=== PATIENT | male | born 1985 | race Caucasian/White ===

== ENCOUNTER 2020-02-13 19:47 | Inpatient (IN) ==
[2020-02-13] MEDS ORDERED: KETOROLAC TROMETHAMINE 15 MG/ML VIAL IV ONE (20:04)
[2020-02-13] MEDS ORDERED: ONDANSETRON INJ 2 MG/ML 2 ML VIAL IV STA (20:04)
[2020-02-13] MEDS ORDERED: HYDROmorphone INJ 1 MG/ML SYRINGE IV STA ×2 (20:04→21:12)
[2020-02-13] MEDS ORDERED: SODIUM CHLORIDE 0.9% 1000ML 1,000 ML IV ONE (20:04)
[2020-02-13 20:29] LABS: Appearance Urine Cloudy (Clear); Bacteria Urine Automated Negative (Negative); Basophils # (auto) 0.02 K/uL (0-0.2); Basophils % (auto) 0.3 %; Bilirubin Urine Negative (Negative); Blood Urine 3+ (Negative); Color Urine Yellow; Eosinophils # (auto) 0.19 K/uL (0-0.5); Eosinophils % (auto) 3.2 %; Epithelial Cell Urine Auto 0-5 /lpf (0-5); Glucose Urine UA Negative (Negative); Hematocrit (blood only) 45.8 % (42-52); Hemoglobin 15.7 g/dL (14.0-18.0); Immature Granulocytes # (auto) 0.01 K/uL (0.00-0.02); Immature Granulocytes % (auto) 0.2 %; Ketones Urine Negative (Negative); Leukocyte Esterase Urine Negative (Negative); Lymphocytes # (auto) 2.42 K/uL (1.2-3.4); Lymphocytes % (auto) 40.5 %; Mean Corpuscular Hemoglobin 30.7 pg (25-34); Mean Corpuscular Hgb Conc 34.3 g/dL (32-36); Mean Corpuscular Volume 89.6 fL (80-100); Mean Platelet Volume 10.2 fL (7.4-10.4); Monocytes % (auto) 8.4 %; Neutrophils # (auto) 2.84 K/uL (1.4-6.5); Neutrophils % (auto) 47.4 %; Nitrite Urine Negative (Negative); Platelet Count 240 K/uL (130-400); Protein Urine Negative (Negative); RBC Urine Automated >30 /hpf (0-4); RDW Coefficient of Variation 13.2 % (11.5-14.5); RDW Standard Deviation 43.3 fL (36.4-46.3); Red Blood Count 5.11 M/uL (4.7-6.1); Specific Gravity Urine 1.023 (1.000-1.030); Urobilinogen Urine Negative (Negative); White Blood Count 5.98 K/uL (4.8-10.8); pH Urine 5.5 (4.5-7.5)
[2020-02-13 20:51] LABS: Albumin Level 4.1 gm/dl (3.4-5.0); BUN Creatinine Ratio 11.9 (10-20); Calcium 8.9 mg/dl (8.5-10.1); Est GFR (African American) 77.4; Est GFR (Non-African American) 66.8; Potassium 3.5 mmol/L (3.5-5.1)
--- NOTE | 2020-02-13 20:52 | CT Scan Report ---
ABDOMEN AND PELVIS CT WITHOUT CONTRAST CT DOSE: 340.84 mGy.cm HISTORY: Left flank pain TECHNIQUE: Multiaxial CT images of the abdomen and pelvis were performed without contrast. A dose lo wering technique was utilized adhering to the principles of ALARA. COMPARISON STUDY: Abdomen and pelvis CT 02/05/2012. FINDINGS: Best seen on image 390 is a 4 mm obstructing stone at the left ureterovesical junction. Thi s results in mild left hydronephrosis and mild left perinephric fat stranding. No renal calculi ident ified. The bladder is not well-distended. Suboptimal evaluation for bowel pathology due to the lack o f intravenous and oral contrast. However, there is no definite bowel wall thickening or obstruction. Normal appendix. No retroperitoneal lymphadenopathy. Normal caliber abdominal aorta. The unenhanced l iver, spleen, gallbladder, pancreas, and adrenal glands are unremarkable. No fractures within the vis ualized osseous structures. The lung bases are clear. No pneumoperitoneum. No pneumatosis. IMPRESSION: A 4 mm obstructing stone at the left ureterovesical junction resulting in mild left hydronephrosis. ACT 112: Negative or not required by law. Electronically signed by: David Bobo M.D. 02/13/2020 8:51 PM
[2020-02-13 20:55] LABS: Albumin Globulin Ratio 1.1 (0.9-2); Bilirubin,Total 0.5 mg/dl (0.2-1); Globulin 3.7 gm/dl (2.5-4.0); Total Protein 7.8 gm/dl (6.4-8.2)
--- NOTE | 2020-02-13 21:12 | Emergency Department Note ---
History of Present Illness General Chief complaint: Flank Pain Stated complaint: kidney stones, flank pain Time Seen by Provider: 02/13/20 19:55 History of Present Illness Maximum Pain Intensity: 5 This patient is a pleasant 34-year-old male that presents ambulatory to the emergency department for evaluation of a sharp, stabbing sensation in his left flank that started approximately 45 minutes ago. The pain is worse with any movement. He denies any urinary symptoms. No hematuria. He denies any vomiting. No changes in bowel movements. He has not taken anything for pain. He denies any history of kidney stones. Home Medications Home Medications Medication Instructions Recorded Confirmed Type No Known Home Medications 02/13/20 02/13/20 History ondansetron HCl [Zofran] 4 mg PO Q6H PRN #20 tab 02/13/20 Rx oxycodone 5 mg PO Q6H PRN #12 tab 02/13/20 Rx tamsulosin [Flomax] 0.4 mg PO HS #7 cap 02/13/20 Rx Allergies Allergy/AdvReac Type Severity Reaction Status Date / Time No Known Allergies Allergy Verified 02/13/20 21:21 Past Med/Surg History Medical History No pertinent past medical history Social History Smoking Status: Former smoker Do You Dip or Chew Tobacco: Yes (Occasionally); Hx Alcohol Use: No Hx Substance Use: No 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 Internal Affairs Required: No Current Living Situation: Spouse Other Information That Helps Us Care for You: No Feels Safe at Home: Yes Safety Concerns: Feels Safe At This Time Assistive Devices: None Review of Systems A total of 10 systems reviewed and were otherwise negative Physical Exam Vital Signs Vital Signs - 24 hr 02/13/20 19:49 02/13/20 20:28 02/13/20 20:58 Temperature 36.6 C Temperature Source Oral Pulse Rate 100 H Pulse Rate [Right Finger] 90 75 Pulse Rhythm Regular Pulse Rhythm [Right Finger] Regular Regular Pulse Strength Normal Pulse Strength [Right Finger] Normal Normal Respiratory Rate 20 16 16 Respiratory Effort / Characteristics Non-Labored Spontaneous Non-Labored Respiratory Depth Normal Normal Normal Respiratory Pattern Regular Regular Blood Pressure 163/100 H Blood Pressure [Left Arm] 147/100 H 131/98 Blood Pressure Mean 121 Blood Pressure Mean [Left Arm] 115 109 Blood Pressure Position Sitting Blood Pressure Position [Left Arm] Lying Lying Pulse Oximetry 97 100 99 Oxygen Delivery Method Room Air Room Air Room Air Sepsis Recent Fever Within 48 Hours No Sepsis New/Unexplained Change in Mental Status N/A Sepsis Action Taken by Nursing No Action Required Constitutional WD/WN, vitals as above Eyes EOM intact bilaterally ENMT external ear and nose normal, oropharynx normal Neck trachea midline Respiratory normal respiratory effort, lungs clear to auscultation Cardiovascular RRR, no murmur, no edema Gastrointestinal (Abdomen) Mild tenderness to palpation in the left lower quadrant. Bowel sounds present in all 4 quadrants. No guarding or rebound tenderness. Musculoskeletal no cyanosis or clubbing, extremities motor strength 5/5 Skin no rashes, warm and dry Neurologic Alert and oriented x3. No focal motor deficits. Psychiatric Acting appropriately Course Course Patient was seen and examined Vital signs including blood pressure were reviewed medications list was verified with patient Labs were obtained, and a saline lock was established Pain medications were ordered. Imaging was ordered and reviewed. He was updated at the bedside. He unfortunately is still in pain. The inpatient service was consulted for pain management. Patient is in agreement [facility] Medications Discontinued Medications Fentanyl Citrate (Fentanyl Citrate 100 Mcg/2 Ml Vial) 75 mcg IV NOW ONE Stop: 02/13/20 22:06 Last Admin: 02/13/20 22:29 Dose: 75 mcg Documented by: [id number] Hydromorphone HCl (Hydromorphone Inj 1 Mg/Ml Syringe) 1 mg IV NOW STA Stop: 02/13/20 20:05 Last Admin: 02/13/20 20:18 Dose: 1 mg Documented by: [id number] Hydromorphone HCl (Hydromorphone Inj 1 Mg/Ml Syringe) 1 mg IV NOW STA Stop: 02/13/20 21:13 Last Admin: 02/13/20 21:29 Dose: 1 mg Documented by: [id number] Hydromorphone HCl (Hydromorphone Inj 0.5 Mg/0.5 Ml Syr) 0.5 mg IV Q3H PRN PRN Reason: Pain Stop: 02/27/20 23:33 Last Admin: 02/14/20 01:53 Dose: 0.5 mg Documented by: [id number] Hydromorphone HCl (Hydromorphone Inj 0.5 Mg/0.5 Ml Syr) 0.5 mg IV NOW STA Stop: 02/14/20 04:45 Last Admin: 02/14/20 05:01 Dose: Not Given Documented by: [id number] Sodium Chloride (Nss 1000ml) 1,000 mls @ 999 mls/hr IV .Q1H1M ONE Stop: 02/13/20 21:04 Last Infusion: 02/13/20 21:00 Dose: 0 mls/hr Documented by: [id number] Admin: 02/13/20 20:22 Dose: 999 mls/hr Documented by: [id number] Sodium Chloride (Nss 1000ml) 1,000 mls @ 125 mls/hr IV .Q8H OSIEL Stop: 03/14/20 23:33 Last Infusion: 02/14/20 14:45 Dose: 125 mls/hr Documented by: [id number] Admin: 02/14/20 08:23 Dose: 125 mls/hr Documented by: [id number] Infusion: 02/14/20 08:14 Dose: 125 mls/hr Documented by: [id number] Infusion: 02/14/20 06:20 Dose: 125 mls/hr Documented by: [id number] Admin: 02/14/20 00:14 Dose: 125 mls/hr Documented by: [id number] Ketorolac Tromethamine (Ketorolac Tromethamine 15 Mg/Ml Vial) 15 mg IV NOW ONE Stop: 02/13/20 20:05 Last Admin: 02/13/20 20:18 Dose: 15 mg Documented by: [id number] Ketorolac Tromethamine (Ketorolac 30 Mg/Ml Vial) 30 mg IV Q6H PRN PRN Reason: Pain Stop: 02/18/20 23:33 Last Admin: 02/14/20 15:36 Dose: 30 mg Documented by: [id number] Admin: 02/14/20 08:28 Dose: 30 mg Documented by: [id number] Admin: 02/14/20 02:25 Dose: 30 mg Documented by: [id number] Ondansetron HCl (Ondansetron Inj 2 Mg/Ml 2 Ml Vial) 4 mg IV NOW STA Stop: 02/13/20 20:05 Last Admin: 02/13/20 20:17 Dose: 4 mg Documented by: [id number] Ondansetron HCl (Ondansetron Home Pack 4mg Od Tab) 1 homepack PO NOW ONE Stop: 02/13/20 21:13 Last Admin: 02/13/20 22:39 Dose: Not Given Documented by: [id number] Oxycodone HCl (Oxycodone Ir Home Pack) 1 homepack PO UD ONE Stop: 02/13/20 21:13 Last Admin: 02/13/20 22:39 Dose: Not Given Documented by: [id number] Oxycodone HCl (Oxycodone Hcl Ir 5 Mg Tab (Immediate Release)) 5 mg PO Q4H PRN PRN Reason: Pain Stop: 02/28/20 04:53 Last Admin: 02/14/20 13:33 Dose: 5 mg Documented by: [id number] Oxycodone HCl (Oxycodone Hcl Ir 5 Mg Tab (Immediate Release)) Confirm Administered Dose 5 mg .ROUTE .STK-MED ONE Stop: 02/14/20 04:57 Last Admin: 02/14/20 04:57 Dose: 5 mg Documented by: [id number] Tamsulosin HCl (Tamsulosin Hcl 0.4 Mg Cap) 0.4 mg PO NOW ONE Stop: 02/13/20 23:35 Last Admin: 02/14/20 00:14 Dose: 0.4 mg Documented by: [id number] Medical Decision Making Medical Records Attestation: I reviewed the patient's medical records. Home Medications Current Medication List: was personally reviewed by me Laboratory Data Attestation: I reviewed the patient's lab results. Result diagrams: 02/14/20 05:18 02/14/20 05:18 Lab Results 02/13/20 02/13/20 02/13/20 Range/Units 20:12 20:12 20:12 WBC 5.98 (4.8-10.8) K/uL RBC 5.11 (4.7-6.1) M/uL Hgb 15.7 (14.0-18.0) g/dL Hct 45.8 (42-52) % MCV 89.6 (80-100) fL MCH 30.7 (25-34) pg MCHC 34.3 (32-36) g/dL RDW Std Deviation 43.3 (36.4-46.3) fL RDW Coeff of Rand 13.2 (11.5-14.5) % Plt Count 240 (130-400) K/uL MPV 10.2 (7.4-10.4) fL Immature Gran % (Auto) 0.2 % Neut % (Auto) 47.4 % Lymph % (Auto) 40.5 % Williamson % (Auto) 8.4 % Eos % (Auto) 3.2 % Baso % (Auto) 0.3 % Neut # (Auto) 2.84 (1.4-6.5) K/uL Lymph # (Auto) 2.42 (1.2-3.4) K/uL Williamson # (Auto) 0.50 (0.11-0.59) K/uL Eos # (Auto) 0.19 (0-0.5) K/uL Baso # (Auto) 0.02 (0-0.2) K/uL Immature Gran # (Auto) 0.01 (0.00-0.02) K/uL Sodium 138 (136-145) mmol/L Potassium 3.5 (3.5-5.1) mmol/L Chloride 107 (98-107) mmol/L Carbon Dioxide 29 (21-32) mmol/L Anion Gap 2.0 L (3-11) BUN 16 (7-18) mg/dl Creatinine 1.37 (0.6-1.4) mg/dl Est Cr Clr Drug Dosing 71.0 ml/min Est GFR ( Amer) 77.4 Est GFR (Non-Af Amer) 66.8 BUN/Creatinine Ratio 11.9 (10-20) Glucose 97 (70-99) mg/dl Calcium 8.9 (8.5-10.1) mg/dl Total Bilirubin 0.5 (0.2-1) mg/dl AST 12 L (15-37) U/L ALT 20 (12-78) U/L Alkaline Phosphatase 56 (45-117) U/L Total Protein 7.8 (6.4-8.2) gm/dl Albumin 4.1 (3.4-5.0) gm/dl Globulin 3.7 (2.5-4.0) gm/dl Albumin/Globulin Ratio 1.1 (0.9-2) Urine Color Yellow Urine Appearance Cloudy A (Clear) Urine pH 5.5 (4.5-7.5) Ur Specific [place] 1.023 (1.000-1.030) Urine Protein Negative (Negative) Urine Glucose (UA) Negative (Negative) Urine Ketones Negative (Negative) Urine Blood 3+ H (Negative) Urine Nitrite Negative (Negative) Urine Bilirubin Negative (Negative) Urine Urobilinogen Negative (Negative) Ur Leukocyte Esterase Negative (Negative) Urine WBC (Auto) 1-5 (0-5) /hpf Urine RBC (Auto) >30 H (0-4) /hpf U Hyaline Cast (Auto) 1-5 (0-5) /lpf U Epithel Cells (Auto) 0-5 (0-5) /lpf Urine Bacteria (Auto) Negative (Negative) Imaging Data Attestation: I personally reviewed and interpreted this imaging study as follows: Radiologist's Impression: CT abdomen and pelvis without IV or oral contrast IMPRESSION: A 4 mm obstructing stone at the left ureterovesical junction resulting in mild left hydronephrosis. ACT 112: Negative or not required by law. Electronically signed by: David Bobo M.D. 02/13/2020 8:51 PM Dictated: 02/13/202046 Transcribed: 02/13/202046 MDM Narrative Differential diagnosis: Ureteral stone, kidney stone, pyelonephritis, diverticulitis, bowel obstruction, bowel perforation, testicular torsion, among others were considered This patient is a 34-year-old male who presents emergency department complaining of a sudden onset of left flank pain. On exam, his vital signs were stable. He was nontoxic in appearance. He did appear to be uncomfortable. He was tender in the left lower abdomen. Labs reveal no leukocytosis. Renal function is intact. Electrolytes also within normal limits. I had a high suspicion of ureteral stones; therefore, we proceeded with a CT of the abdomen and pelvis. This is consistent with a 4 mm stone at the UVJ with mild hydronephrosis. This likely explains his pain. His urine does not appear to be infected. His pain was uncontrolled. He will be evaluated by the hospitalist for possible inpatient management. Impression & Plan Calculus, ureteral Discharge Plan Visit Data Chief Complaint: Flank Pain Stated Complaint: kidney stones, flank pain ED Provider: Heidi Lin ED Midlevel Provider: Lynette Latif Discharge Problem: Calculus, ureteral Patient Disposition: Admitted As Inpatient Condition: Good Discharge Instructions Interventions: ED Discharge Assessment Last Done: 02/13/20 23:20
[2020-02-13] MEDS: oxyCODONE IR HOME PACK PO ONE ×2 (21:29→22:39)
[2020-02-13] MEDS: ONDANSETRON HOME PACK 4MG OD TAB PO ONE ×2 (21:29→22:39)
[2020-02-13] MEDS ORDERED: fentaNYL citrate 100 MCG/2 ML VIAL IV ONE (22:05)
[2020-02-13] MEDS ORDERED: POLYETHYLENE (MIRALAX) 17 GM PACK PO PRN (23:34)
[2020-02-13] MEDS ORDERED: ONDANSETRON INJ 2 MG/ML 2 ML VIAL IV PRN (23:34)
[2020-02-13] MEDS ORDERED: TAMSULOSIN HCL 0.4 MG CAP PO ONE (23:34)
[2020-02-13] MEDS ORDERED: HYDROmorphone INJ 0.5 MG/0.5 ML SYR IV PRN (23:34)
[2020-02-13] MEDS ORDERED: ACETAMINOPHEN 325 MG TAB PO PRN (23:34)
[2020-02-14] MEDS: SODIUM CHLORIDE 0.9% 1000ML 1,000 ML IV SCH ×2 (00:14→08:23)
--- NOTE | 2020-02-14 00:31 | History and Physical Report ---
DATE OF ADMISSION: 02/13/2020 CHIEF COMPLAINT: Left flank pain. HISTORY OF PRESENT ILLNESS: This is a 34-year-old male with past medical history significant for hypertension, not on any medications. The patient on was diagnosed with COVID, still has some distaste, comes today because of severe left flank pain started at 7:00 p.m. tonight, the pain comes and goes. He required significant pain medication in the ER, initially the plan was to send him home and follow as outpatient, but the pain came back, so we are admitting for pain control. The patient currently resting comfortably and hemodynamically stable, seems to be in pain. Denies any other complaints. Denies any headache, no blurred vision, no earache, no runny nose, no sore throat, no cough, no fever, no chills, no chest pain, no shortness of breath, no nausea, no vomiting. No hematuria, no burning micturitions. Normal bowel movements. No swelling in the legs seen. ALLERGIES: No known drug allergies. PAST MEDICAL HISTORY: As mentioned above. PAST SURGICAL HISTORY: Colonoscopy. MEDICATIONS: None. FAMILY HISTORY: Significant for father had diabetes, hypertension. Mother has heart disorder, diabetes. Maternal grandfather had prostate cancer and heart disorder. SOCIAL HISTORY: Single, smokes tobacco. No alcohol use, no drug use. REVIEW OF SYMPTOMS: As per HPI. Rest of review of symptoms negative. PHYSICAL EXAMINATION: GENERAL: The patient is of moderate build, not in acute distress. VITAL SIGNS: Temperature 36.6, pulse 94, respiratory rate 16, blood pressure 168/102, oxygen 99% on room air. HEENT: Pupils equal, round, reactive to light. Oral mucosa moist. NECK: Supple. CARDIOVASCULAR: S1, S2 heard, regular rate and rhythm, no murmur, no gallop. RESPIRATORY SYSTEM: Normal AP diameter. No accessory muscle use. No wheezing, no crackles. ABDOMEN: Soft, bowel sounds present, mild LLQ discomfort. No distention, no CVA tenderness. CENTRAL NERVOUS SYSTEM: Cranial nerves II-XII grossly intact. Nonfocal. EXTREMITIES: No edema, no erythema. LABORATORY DATA: WBC 5.9, hemoglobin 15.7, hematocrit 45.8, platelets 240. Sodium 138, potassium 3.5, chloride 107, bicarbonate 29, BUN 16, creatinine 1.37, serum glucose 97, calcium 8.9, total bilirubin 0.5, AST 12, ALT 20, alkaline phosphatase 56. Urinalysis, +[address] of abdomen and pelvis without contrast showed 4 mm obstructing stone at the left UVJ junction resulting mild left hydronephrosis. ASSESSMENT AND PLAN: This 34-year-old male who presents with left renal colic. 1. Left renal colic with CAT scan showing 4 mm left UVJ junction stone with mild hydronephrosis. UA is negative for infection, afebrile and no leukocytosis. Requiring significant pain medication in the ER. Will admit to the hospital, will give him IV fluids, IV Dilaudid p.r.n., IV Toradol p.r.n. Flomax. Will keep n.p.o. after midnight and consult Urology in the a.m. for further recommendation. 2. History of hypertension, not on any medication, currently elevated, could be situational. We will monitor the blood pressure. 3. Deep venous thrombosis prophylaxis, sequential compression devices. DISPOSITION: Admit to medical floor. Expect discharge home and follow with family doctor. SEPIDEH
[2020-02-14] MEDS: KETOROLAC 30 MG/ML VIAL IV PRN ×3 (02:25→15:36)
[2020-02-14] MEDS ORDERED: HYDROmorphone INJ 0.5 MG/0.5 ML SYR IV STA (04:44)
[2020-02-14] MEDS ORDERED: oxyCODONE HCL IR 5 MG TAB (IMMEDIATE RELEASE) PO PRN (04:54)
[2020-02-14] MEDS ORDERED: oxyCODONE HCL IR 5 MG TAB (IMMEDIATE RELEASE) ONE (04:56)
[2020-02-14 05:51] LABS: Basophils # (auto) 0.02 K/uL (0-0.2); Basophils % (auto) 0.3 %; Eosinophils # (auto) 0.13 K/uL (0-0.5); Eosinophils % (auto) 1.8 %; Hematocrit (blood only) 43.6 % (42-52); Hemoglobin 14.6 g/dL (14.0-18.0); Immature Granulocytes # (auto) 0.01 K/uL (0.00-0.02); Immature Granulocytes % (auto) 0.1 %; Lymphocytes # (auto) 1.62 K/uL (1.2-3.4); Lymphocytes % (auto) 22.6 %; Mean Corpuscular Hemoglobin 30.3 pg (25-34); Mean Corpuscular Hgb Conc 33.5 g/dL (32-36); Mean Corpuscular Volume 90.5 fL (80-100); Mean Platelet Volume 10.4 fL (7.4-10.4); Monocytes # (auto) 0.81 K/uL (0.11-0.59); Monocytes % (auto) 11.3 %; Neutrophils # (auto) 4.57 K/uL (1.4-6.5); Neutrophils % (auto) 63.9 %; Platelet Count 230 K/uL (130-400); RDW Coefficient of Variation 13.4 % (11.5-14.5); Red Blood Count 4.82 M/uL (4.7-6.1); White Blood Count 7.16 K/uL (4.8-10.8)
[2020-02-14 06:07] LABS: BUN Creatinine Ratio 10.4 (10-20); Calcium 8.6 mg/dl (8.5-10.1); Creatinine Clr Calc Pharmacy 83.2 ml/min; Est GFR (African American) 84.9; Est GFR (Non-African American) 73.2; Potassium 3.8 mmol/L (3.5-5.1)
--- NOTE | 2020-02-14 08:18 | Urology Consultation ---
Date of Consultation February 14, 2020 Assessment & Plan (1) Left ureteral calculus: 34yo M admitted for left flank pain secondary to a 4mm left UVJ stone with hydronephrosis -Plan of care reviewed with Dr. Faith -Patient afebrile, white count and creatinine are stable -Discussed options for acute stone management with ureteroscopy, stone extraction, and stent -Discussed outpatient options for conservative measures with max expulsion medical therapy -Discussed possible outpatient ESWL, KUB ordered -Risks/benefits of all procedures discussed -Patient prefers trial of passage -Keep NPO for now -Strain all urine -Will plan to reevaluate later today History of Present Illness Attending Physician: Yenifer Beck MD History of Present Illness 34yo M, with no significant PMHx, presented to the ER last night with c/o left flank pain. A CT abd/pelvis was performed which was notable for a 4 mm obstructing stone at the left ureterovesical junction resulting in mild left hydronephrosis. He was admitted for pain control and IVF. Urology consulted for 4mm left UVJ stone with hydro. He has not followed with Urology in the past No personal or family hx of stones Chart review 02/13: Afebrile WBC 7.16 Cr 1.27 Hgb 14.6 UA- 3+blood, negative for bacteria, negative for nitrites, negative for leuks Imaging- CT abd/pelvis Impression: 1. A 4 mm obstructing stone at the left ureterovesical junction resulting in mild left hydronephrosis. Patient examined at bedside this am. Reports some improvement in L flank pain with medication. Denies fevers or chills. Denies nausea or vomiting. Denies hematuria and dysuria. Denies any urinary frequency/urgency. Has been NPO. Not on anticoagulants. Allergies Allergy/AdvReac Type Severity Reaction Status Date / Time No Known Allergies Allergy Verified 02/13/20 21:21 Home Medications Home Medications Medication Instructions Recorded Confirmed Type No Known Home Medications 02/13/20 02/13/20 History ondansetron HCl [Zofran] 4 mg PO Q6H PRN #20 tab 02/13/20 Rx oxycodone 5 mg PO Q6H PRN #12 tab 02/13/20 Rx tamsulosin [Flomax] 0.4 mg PO HS #7 cap 02/13/20 Rx Patient History Medical History No pertinent past medical history Social History Smoking Status: Former smoker Do You Dip or Chew Tobacco: Yes (Occasionally); Hx Alcohol Use: No Hx Substance Use: No Preferred Language: Slovak Compliance Monitor Required: No Current Living Situation: Spouse Other Information That Helps Us Care for You: No Feels Safe at Home: Yes Safety Concerns: Feels Safe At This Time Assistive Devices: None Review of Systems Review of Systems: All systems reviewed & are unremarkable except as noted in HPI & below Physical Exam Constitutional: well developed and well nourished; no acute distress and not ill appearing Neck: normal visual inspection Respiratory: normal respiratory effort and able to speak in complete sentences Cardiovascular: Extremities: no calf tenderness and no pedal edema Gastrointestinal (Abdomen): Inspection/Auscultation: abdomen normal to inspection Musculoskeletal: Head/Neck/Chest: normocephalic Skin: no rashes, warm and dry Neurologic: moves all extremities and awake; not confused Psychiatric: Orientation: alert, oriented x 3 and cooperative Results & Data ([facility]) Vital Signs (Past 12 Hours) Vital Signs Temp Pulse Pulse Pulse Resp BP BP 02/14/20 07:10 36.6 C 69 18 124/82 02/14/20 06:14 99 H 138/91 02/13/20 23:37 37 C 69 16 155/104 H 02/13/20 23:20 79 18 152/82 H 02/13/20 22:32 95 H 16 168/102 H 02/13/20 20:58 75 16 131/98 02/13/20 20:28 90 16 147/100 H Pulse Ox 02/14/20 07:10 100 02/14/20 06:14 02/13/20 23:37 97 02/13/20 23:20 99 02/13/20 22:32 99 02/13/20 20:58 99 02/13/20 20:28 100 PG Care Time/CCT Total # of Minutes Spent Total Time Spent with Patient: Total time spent is greater than 50% in coordination of care (as documented) at patient's floor/unit and/or counseling patient: Coding Level of Care Code 62571 Inpt Consult Level 4 Diagnoses Left ureteral calculus N20.1
--- NOTE | 2020-02-14 13:36 | XRay Report ---
KUB HISTORY: Follow up study in a patient with the reported left ureteral calculus Left Ureteral Stone COMPARISON: CT abdomen and pelvis 02/13/2020. FINDINGS: The bowel gas pattern is non-obstructive. There is no organomegaly. There is a 4 mm radiod ensity of the left hemipelvis. No nephrolithiasis identified. No pneumoperitoneum or pneumatosis. No fracture. IMPRESSION: 4 mm radiodensity of the left hemipelvis likely represents persistent distal left ureteral calculus. ACT 112: Negative or not required by law. The above report was generated using voice recognition software. It may contain grammatical, syntax o r spelling errors. Electronically signed by: Zana Kenney M.D. 02/14/2020 1:35 PM
--- NOTE | 2020-02-14 16:11 | Hospitalist Progress Note ---
Date of Service February 14, 2020 Assessment & Plan (1) Left ureteral calculus: presented with left flank pain CT abdomen/pelvis shows 4 mm distal ureterovesical stone appreciate input from Urology pt refused to have Ureteric stent placement , wants to have trial of passage of stone spontaneously does not have any fever or chills , no evidence of infection normal kidney function per Urology pt can be discharged home today -appointment scheduled at the clinic in week for ESWL if unable to pass the stone by then scripts for Oxycodone , Flomax and PRN Zofran sent to pharmacy by Urology already pt is discharged home today aware that if pain gets worse , develops fever /chills , intractable Nausea /vomiting , needs to come to ER for evaluation Pt and his verbalized understanding Admission and Anticipated Discharge Date Admission Date: February 13, 2020 Subjective Continues to have left flank pain tolerable with pain meds unable to pass the ureteric stone yet no fever or chills very eager to be discharged home today Review of Systems Review of Systems: All systems reviewed & are unremarkable except as noted in HPI & below Gastrointestinal: left flank pain Physical Exam Constitutional: WD/WN, vitals as above Eyes: PERRL, conjunctivae normal, anicteric sclerae ENMT: external ear and nose normal, oropharynx normal Neck: trachea midline, no thyromegaly Respiratory: normal respiratory effort, lungs clear to auscultation Cardiovascular: RRR, no murmur, no edema Gastrointestinal (Abdomen): Percussion/Palpation: abdomen soft left flank pain Musculoskeletal: no cyanosis or clubbing, extremities motor strength 5/5 Skin: no rashes, warm and dry Neurologic: PERRL, EOMI, accommodation nl, no face palsy, no dysarthria Psychiatric: A+Ox3, euthymic affect Results & Data Results & Data ([facility]) Vital Signs (Past 12 Hours) Vital Signs Temp Pulse Pulse Resp BP Pulse Ox 02/14/20 07:10 36.6 C 69 18 124/82 100 02/14/20 06:14 99 H 138/91
--- NOTE | 2020-02-14 16:12 | Discharge Summary ---
Date of Service February 14, 2020 Admission HPI Per Admitting Provider DICTATED BY: Albert Jackson MD DATE OF ADMISSION: 02/13/2020 CHIEF COMPLAINT: Left flank pain. HISTORY OF PRESENT ILLNESS: This is a 34-year-old male with past medical history significant for hypertension, not on any medications. The patient on was diagnosed with COVID, still has some distaste, comes today because of severe left flank pain started at 7:00 p.m. tonight, the pain comes and goes. He required significant pain medication in the ER, initially the plan was to send him home and follow as outpatient, but the pain came back, so we are admitting for pain control. The patient currently resting comfortably and hemodynamically stable, seems to be in pain. Denies any other complaints. Denies any headache, no blurred vision, no earache, no runny nose, no sore throat, no cough, no fever, no chills, no chest pain, no shortness of breath, no nausea, no vomiting. No hematuria, no burning micturitions. Normal bowel movements. No swelling in the legs seen Principal Diagnosis Kidney Stone Discharge Exam Constitutional WD/WN, vitals as above Eyes PERRL, conjunctivae normal, anicteric sclerae ENMT external ear and nose normal, oropharynx normal Neck trachea midline, no thyromegaly Respiratory normal respiratory effort, lungs clear to auscultation Cardiovascular RRR, no murmur, no edema Gastrointestinal (Abdomen) Percussion/Palpation: abdomen soft Musculoskeletal no cyanosis or clubbing, extremities motor strength 5/5 Skin no rashes, warm and dry Neurologic PERRL, EOMI, accommodation nl, no face palsy, no dysarthria Psychiatric A+Ox3, euthymic affect Discharge Data Allergies Allergy/AdvReac Type Severity Reaction Status Date / Time No Known Allergies Allergy Verified 02/13/20 21:21 Consultations 02/13/20 22:06 ED Decision to Admit Stat 02/14/20 08:00 Consult Urology Routine Ordered Studies 02/13/20 20:04 CT abd pelvis wo con Stat Hospital Course (1) Left ureteral calculus: presented with left flank pain CT abdomen/pelvis shows 4 mm distal ureterovesical stone appreciate input from Urology pt refused to have Ureteric stent placement , wants to have trial of passage of stone spontaneously does not have any fever or chills , no evidence of infection normal kidney function per Urology pt can be discharged home today -appointment scheduled at the clinic in week for ESWL if unable to pass the stone by then scripts for Oxycodone , Flomax and PRN Zofran sent to pharmacy by Urology already pt is discharged home today aware that if pain gets worse , develops fever /chills , intractable Nausea /vomiting , needs to come to ER for evaluation Pt and his verbalized understanding Total Time Total Time Spent Total Time Spent (In Minutes): 35 mins Total Time Includes: Examination of the Patient, Discharge Planning and Medication Reconciliation Discharge Plan Discharge Items Patient Disposition: Home - Self-Care Reason For Visit: LEFT FLANK PAIN Discharge Diagnosis: LEFT URETERIC STONE Condition on Discharge: Good Activity: Resume your previous activity Non-emergency contact: Primary Care Provider Call non-emergency contact if: you have any medication questions, your symptoms worsen, your pain is worsening, you have a fever and your rectal temperature is above 100.4 Follow-up/Referrals: Carl Faith MD [Physician] - (FOLLOW UP WITH UROLOGY SCHEDULED ) Oma Rothman DO [Primary Care Provider] - 02/19/20 2:20 pm Diet: Regular Addtl Attending Provider Instructions: PLEASE FOLLOW UP WITH UROLOGY IN A WEEK , CONTINUE TO STRAIN ALL URINE /IF YOU ARE ABLE TO PASS THE STONE AT HOME , KEEP THE SAMPLE AND BRING IT UROLOGY VISIT KIDNEY STONE CAN BE ANALYZED IN THE LAB TO FIND THE COMPONENT OF THE STONE ( MOST STONES ARE MADE OF CALCIUM ) SOME OF THE CASES FUTURE STONE FORMATION CAN BE PREVENTED BY CHANGING DIET OR MEDICATION UROLOGY WILL BE ABLE TO RECOMMEND YOU AFTER THE LAB RESULT IS AVAILABLE DRINK PLENTY OF FLUID YOU CAN TAKE MOTRIN ( TAKE WITH FOOD ) , AND ALTERNATE WITH OXYCODONE IF PAIN IS NOT CONTROLLED RETURN TO ER IF PAIN GETS WORSE , YOU DEVELOP FEVER Pending Studies at Discharge: No Stand-Alone Forms: My Donde, Smoking Cessation Medications and DC Order Prescriptions: New ondansetron HCl [Zofran] 4 mg tablet 4 mg PO Q6H PRN (Reason: nausea and vomiting) Qty: 20 RF: 0 tamsulosin [Flomax] 0.4 mg capsule 0.4 mg PO HS Qty: 7 RF: 0 oxycodone 5 mg tablet 5 mg PO Q6H PRN (Reason: pain) Qty: 12 RF: 0 Continued No Known Home Medications RF: 0 Discharge Orders: Discharge Order (Routine); Ordered 02/14/20 Ordered By: Yenifer Beck Admission Data Admit Date/Time: 02/13/20 22:44 Attending Provider: Yenifer Beck Admit Provider: Albert Jackson Primary Care Provider: Oma Rothman Other Providers: Albert Jackson ; Cezar Morales ; Yoandy Venegas ; Iggy Pérez I. ; Carl Faith ; Aidee Cortes ; Myrna Cleary ; Joshua Clarke ; Shahnaz Hare ; Enid Vance ; Barbara Ramirez ; James Rivera ; Trudy Lehman ; Eduarda Solomon
[2020-02-14] MEDS ORDERED: TAMSULOSIN HCL 0.4 MG CAP PO SCH (21:00)
== END 2020-02-14 16:52 | disposition home or self-care (01) | DRG 694 ==
LOC: ED 19:47 → 3N 22:44